=== PATIENT | female | born 1970 | race Caucasian/White ===

== ENCOUNTER 2019-11-16 16:35 | Emergency (ER) | payer OTHER, SELFPAY ==
[2018-10-28 10:58] VITALS: BMI 52.6
[2019-11-16 16:35] VITALS: BP 150/93; PULSE 94; RESP 18; TEMP 35.8
[2019-11-16 16:36] VITALS: BP 150/93; PULSE 94; RESP 18; TEMP 35.8; BMI 57.9
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
--- NOTE | 2019-11-16 17:30 | RAD_ITS ---
STUDY: X-RAY - RIGHT KNEE REASON FOR EXAM: Female, 49 years old. Lateral knee pain, atraumatic TECHNIQUE: 3 view(s) of the knee. COMPARISON: None. FINDINGS: No acute fracture, dislocation or osseous destruction. There is marked tricompartmental degenerative disease. No significant soft tissue swelling. Possibly calcified right lateral thigh nodule. IMPRESSION: Tricompartmental degenerative disease without acute fracture or dislocation. Possibly calcified right lateral thigh nodule. Recommend evaluation with physical exam. Electronically Signed: Ponce Kidd, at 17:50 EDT Tel , Service support , RAD/Knee 4 or More Views
--- NOTE | 2019-11-16 17:49 | ED.DEP ---
ED Disposition - Plan for ED Patient: Disposition: Home or Assisted Living Instructions: KNEE PAIN, Uncertain Cause Referrals: Carlton Weldon MD [Primary Care Provider] - 1 Week if not improving Additional Instructions: Right knee. Motrin for pain and inflammation and Tylenol just for pain. Follow-up with your doctor if not improving if not improving then may need to see an orthopedic physician. Your x-ray shows chronic changes like arthritis but no acute abnormality.
[2019-11-16 18:03] VITALS: RESP 16
== END 2019-11-16 18:05 | disposition home or self-care (01) ==
LOC: ED 17:51
PROVIDERS: Emergency Provider Emergency Medicine; PCP Family Medicine
DX: M25.561 Pain in right knee (principal)
CPT/HCPCS: 73564; 99282

== ENCOUNTER → 2020-02-15 13:47 | Outpatient (CLI) | payer OTHER, SELFPAY ==
[2020-02-08 09:58] VITALS: BMI 57.6
--- NOTE | 2020-02-15 13:47 | ECHOCS_ITS ---
Version 2 Reason For Study: CHF Procedure This was a 2D Doppler, Color Flow transthoracic echocardiogram. Technically difficult study due to patient body habitus. Contrast injection performed. Exam performed in department. Left Ventricle Normal LV size. The estimated ejection fraction is 40 %. No regional wall motion abnormalities noted. Right Ventricle Normal RV size. Normal systolic function. Atria Normal left atrium. Normal right atrium. Mitral Valve Normal mitral valve. Tricuspid Valve The tricuspid valve is not well visualized. Unable to estimate RV systolic pressure due to insufficient tricuspid regurgitant envelope. Aortic Valve The aortic valve is not well visualized. Pulmonic Valve The pulmonic valve is not well visualized. Great Vessels Normal aortic root. The pulmonary artery is normal size. Normal inferior vena cava. Pericardium/Pleural No pericardial effusion. Medication 22 gauge I.V. with prn adaptor inserted into right arm. Diluted definity 2ml given slow IV push to enhance endocardial definition. MMode/2D Measurements & Calculations LVIDd: 6.0 cm IVSd: 1.0 cm Ao root diam: 2.9 cm LVIDs: 4.5 cm LVPWd: 0.98 cm LA dimension: 4.0 cm FS: 24.7 % LAV(MOD-bp): 50.8 ml LVAd ap4: 42.7 cm2 SV(MOD-sp4): 71.1 ml LAV(MOD-bp) Indexed: 19.8 ml/m2 EDV(MOD-sp4): 154.8 ml LAV(MOD-sp2): 48.9 ml EDV(sp4-el): 162.0 ml LAV(MOD-sp4): 51.6 ml LVAs ap4: 29.4 cm2 ESV(MOD-sp4): 83.6 ml ESV(sp4-el): 86.4 ml EF(MOD-sp4): 46.0 % EF(sp4-el): 46.7 % SV(sp4-el): 75.6 ml LA A4 area: 18.6 cm2 RA A4 area: 14.3 cm2 Time Measurements MV dec time: 0.19 sec Doppler Measurements & Calculations MV E max oseas: 61.0 cm/sec Lat Peak E' Oseas: 5.4 cm/sec Med Peak E' Oseas: 12.6 cm/sec MV A max oseas: 101.9 cm/sec E/E' lat: 11.4 E/E' med: 4.8 MV E/A: 0.60 MV V2 max: 134.8 cm/sec MV P1/2t max oseas: 105.9 cm/sec Ao V2 max: 147.3 cm/sec MV max P.3 mmHg MV P1/2t: 58.0 msec Ao max P.7 mmHg MV V2 mean: 76.3 cm/sec MV mean P.8 mmHg MV dec slope: 535.2 cm/sec2 MV V2 VTI: 29.1 cm MVA(P1/2t): 3.8 cm2 LV V1 max: 99.0 cm/sec PA V2 max: 115.6 cm/sec LV V1 max P.9 mmHg Interpretation Summary Normal LV size. The estimated ejection fraction is 40 %. No regional wall motion abnormalities noted. Compared to previous study, the left ventricular systolic function has improved.. Ordering Physician: Albino Reid Referring Physician: Carlton Weldon Performed By: Roni Peoples RCS
== END ==
PROVIDERS: PCP Family Medicine; Referring Provider Internal Medicine Cardiovascular Disease; Visit Provider Internal Medicine Cardiovascular Disease
DX: I42.8 Other cardiomyopathies (principal)
CPT/HCPCS: 93306; Q9957; A4216; C8929

== ENCOUNTER → 2020-09-21 14:51 | Outpatient (CLI) | payer OTHER, SELFPAY ==
[2020-09-06 12:32] VITALS: BMI 57.6
--- NOTE | 2020-09-21 14:54 | ECHOCS_ITS ---
Version 3 Reason For Study: DYSPNEA/SOB Procedure This was a 2D Doppler, Color Flow transthoracic echocardiogram. The study was technically difficult. The study was technically limited. Due to body habitus. Contrast injection was performed. Exam performed in department. Left Ventricle Normal left ventricle. Mild concentric left ventricular hypertrophy. Left ventricular systolic function is normal. The estimated ejection fraction is 55 %. No regional wall motion abnormalities noted. Right Ventricle Normal RV size. Normal systolic function. Great Vessels Normal aortic root. The pulmonary artery is normal size. Inferior vena cava collapse with respiration. Pericardium/Pleural No pericardial effusion. Medication 22 gauge I.V. with prn adaptor inserted into left arm. Diluted definity 3.5ml given slow IV push to enhance endocardial definition. MMode/2D Measurements & Calculations LVIDd: 5.2 cm IVSd: 1.2 cm Ao root diam: 3.0 cm LVIDs: 4.0 cm LVPWd: 1.2 cm FS: 24.1 % LAV(MOD-bp): 59.9 ml LA dimension(2D): 4.0 cm LA A4 area: 19.0 cm2 LAV(MOD-bp) Indexed: 23.4 ml/m2 LAV(MOD-sp2): 64.9 ml LAV(MOD-sp4): 54.6 ml RA A4 area: 13.1 cm2 Doppler Measurements & Calculations MV E max oseas: 63.7 cm/sec Lat Peak E' Oseas: 9.2 cm/sec Med Peak E' Oseas: 6.5 cm/sec MV A max oseas: 105.9 cm/sec E/E' lat: 6.9 E/E' med: 9.7 MV E/A: 0.60 Ao V2 max: 153.1 cm/sec LV V1 max: 97.3 cm/sec PA V2 max: 116.1 cm/sec Ao max P.4 mmHg LV V1 max P.8 mmHg Interpretation Summary Normal left ventricle. Left ventricular systolic function is normal. The estimated ejection fraction is 55 %. Mild concentric left ventricular hypertrophy. Contrast injection was performed. Compared to previous study, the left ventricular systolic function has improved.. Ordering Physician: Franklin^Albino^^^ Referring Physician: Carlton Weldon Performed By: Mayra Murillo, RUBY, RVT
== END ==
PROVIDERS: PCP Family Medicine; Referring Provider Internal Medicine Cardiovascular Disease; Visit Provider Internal Medicine Cardiovascular Disease
DX: R06.00 Dyspnea, unspecified (principal); R06.02 Shortness of breath; I42.8 Other cardiomyopathies; I10 Essential (primary) hypertension
CPT/HCPCS: 93306; Q9957; A4216; C8929

== ENCOUNTER → 2022-01-17 | Outpatient (CLI) | payer OTHER, SELFPAY ==
--- NOTE | 2022-01-17 16:27 | MRI_ITS ---
STUDY: MRI BRAIN WITH AND WITHOUT CONTRAST (ATTENTION INTERNAL AUDITORY CANALS-IAC''S) OF 1728 HOURS ON 01/17/2022 REASON FOR EXAM: 51-year-old female with tinnitus. TECHNIQUE: Standardized multiplanar fat and water weighted pulse sequences were obtained. IV 30mL DOTAREM was administered for the contrast portion of the examination. Routine sequences were obtained. COMPARISON: None. FINDINGS: Normal bilateral temporal bones. Normal bilateral internal auditory canals. Normal 8 nerves bilaterally. There is no demonstrated intracanalicular or cisternal vestibular schwannoma (acoustic neuroma). There is no enhancement of the bilateral VIIth or VIIIth cranial nerves. Normal bilateral cochlea, vestibules and semicircular canals. Normal external auditory canals and middle ears. No evidence of a cholesteatoma. No posterior fossa mass lesions. There is no evidence of ischemic or hemorrhagic cerebral infarct. There is no evidence of intracranial mass lesions. There is no evidence of carotid artery aneurysms. Normal size of the ventricles and extra-axial spaces for the patient''s age. Normal white matter tracts of the supratentorial brain. Normal bilateral basal ganglia. Normal thalami. Normal flow voids within the major intracranial circulation suggesting patency by spin echo criteria. Normal venous enhancement. There is no enhancing intra-axial or extra-axial abnormality. There is no extra-axial fluid accumulation. Normal sella turcica, pituitary gland, infundibular stalk, optic chiasm and hypothalamus. Normal tectal plate and pineal gland. Normal midbrain, robert and medulla. Normal cerebellum. Normal basal cisterns. No demonstrated orbital abnormality, within the constraints of a routine brain study. Normal visualized paranasal sinuses. Normal calvarium and skull base. Normal visualized soft tissue structures. Normal visualized upper cervical spine. MRI/Brain W/WO Contrast IMPRESSION: 1. Normal-appearing internal auditory canals bilaterally and normal-appearing 8th nerves. No evidence of an acoustic neuroma. 2. No evidence of a cerebral pontine angle neoplasm. No posterior fossa lesions. 3. Normal appearing external auditory canals and middle ears is without evidence for cholesteatoma. 4. Normal-appearing semicircular canals and cochlea bilaterally. 5. Normal ventricular system without a midline shift. 6. No ischemic or hemorrhagic cerebral infarct. 7. No intracranial neoplasms. 8. No evidence of carotid artery aneurysms. Electronically Signed: Cleveland Iglesias MD at 23:43 EDT ,
[2022-01-17 17:21] LABS: CREATININE FINGERSTICK < 0.9 mg/dL (0.55-1.02); EGFR FINGERSTICK > 60.0000 mL/min (>60)
== END | disposition home or self-care (01) ==
LOC: MRI 16:21
PROVIDERS: PCP Family Medicine; Visit Provider Otolaryngology Otolaryngology/Facial Plastic Surgery
DX: H93.19 Tinnitus, unspecified ear (principal)
CPT/HCPCS: 70553; A9575

== ENCOUNTER 2022-04-12 13:43 | Emergency (ER) | payer OTHER, SELFPAY ==
[2022-04-12 13:43] VITALS: BP 155/90
[2022-04-12 13:44] VITALS: BP 169/102; PULSE 81; RESP 16; TEMP 35.7; O2SAT 100; BMI 52.4
--- NOTE | 2022-04-12 14:38 | EX.ED.DYSGE1 ---
HPI <LANCE Cabezas - Last Filed: 04/12/22 16:03> History of Present Illness Chief Complaint: Hypertension Narrative Narrative: Patient presents with asymptomatic high blood pressure. She has had 2 weeks of ringing in her left ear and went to see ENT a few days ago. She was told she needs a hearing aid. They asked if her blood pressure has been high so last night she decided to check it and the systolic was in 150s to 160s. She states she is usually around 120s. She has been compliant with her losartan 25 mg once daily and carvedilol 25 mg twice daily with no recent changes. She otherwise feels well. No severe headache visual changes nausea vomiting chest pain shortness of breath abdominal pain or flank pain. Today when it continued to be high this morning with systolic from 160s to 190s she came in for evaluation because a family member told her she could have a stroke. [facility] <LANCE Cabezas - Last Filed: 04/12/22 16:03> [facility] Medical History (Updated 04/12/22 @ 14:41 by LANCE Cabezas) Adrenal mass Asthma Cor pulmonale DM (diabetes mellitus), type 2 Essential (primary) hypertension Hay fever Herpes labialis Hyperlipidemia Hypothyroidism Left bundle branch block (LBBB) Microcytosis Morbid obesity Non-ischemic cardiomyopathy ALEA (obstructive sleep apnea) SOB (shortness of breath) Super obesity Home Medications glyburide 5 mg tablet PO 30 days #30 tabs 10/28/18 [History Last Taken Unknown] albuterol sulfate 90 mcg/actuation breath activated powder inhaler inhalation 02/06/20 [History Last Taken Unknown] fluoxetine 40 mg capsule 40 mg PO DAILY 02/06/20 [History Last Taken Unknown] levothyroxine 50 mcg tablet 50 mcg PO DAILY 02/06/20 [History Last Taken Unknown] metformin 1,000 mg tablet 1,000 mg PO BID 02/06/20 [History Last Taken Unknown] hydroxyzine HCl 50 mg tablet 50 mg PO BID PRN 02/08/20 [History Last Taken Unknown] dulaglutide 1.5 mg/0.5 mL subcutaneous pen injector mg subcut QWEEK 09/06/20 [History Last Taken Unknown] lorazepam 0.5 mg tablet 0.5 mg PO BID PRN 09/06/20 [History Last Taken Unknown] bisacodyl 5 mg tablet 5 mg PO ONCE 02/13/21 [History Last Taken Unknown] colestipol 1 gram tablet (Colestid) 1 g PO ONCE 02/13/21 [History Last Taken Unknown] dapagliflozin 10 mg tablet (Farxiga) 10 mg PO DAILY 02/13/21 [History Last Taken Unknown] meclizine 25 mg chewable tablet 25 mg PO DAILY 02/13/21 [History Last Taken Unknown] multivitamin 1 tab PO DAILY 02/13/21 [History Last Taken Unknown] losartan 50 mg tablet 50 mg PO DAILY #90 tabs 09/16/21 [Rx Last Taken Unknown] furosemide 20 mg tablet 40 mg PO DAILY #180 tabs 09/18/21 [Rx Last Taken Unknown] carvedilol 25 mg tablet 25 mg PO BID 30 days #180 tabs 10/25/21 [Rx Last Taken Unknown] Allergy/AdvReac Type Severity Reaction Status Date / Time hydrocodone [From Vicodin] AdvReac Vomiting Verified 04/12/22 13:44 Family History Father COPD (chronic obstructive pulmonary disease) Mother Diabetes Heart disease Surgical History History of knee surgery History of left heart catheterization (02/17/17) History of tonsillectomy Social History (Updated 09/06/20 @ 16:[address] Albino Reid MD) Smoking Status: Never smoker alcohol intake: current alcohol intake frequency: a few times a month Alcohol type: hard liquor ROS <LANCE Cabezas - Last Filed: 04/12/22 16:03> ROS ED ROS Narrative Constitutional: Negative for fever, chills, malaise. Eyes: Negative for visual change. ENT: Negative for sore throat, ear pain, rhinorrhea. CVS: Negative for palpitations, chest pain, syncope. Respiratory: Negative for shortness of breath, cough, orthopnea. GI: Negative for abdominal pain, nausea, vomiting, diarrhea, constipation, melena, hematochezia. : Negative for dysuria, hematuria or frequency. Neuro: Negative for headache, motor/sensory dysfunction. Skin: Negative for rash, abscess, or wound. Musc: Negative for joint pain, swelling, trauma. Heme: Negative for easy bruising, bleeding, lymphadenopathy. EXAM <LANCE Cabezas - Last Filed: 04/12/22 16:03> Physical Exam Narrative Exam Narrative: CONST: Patient sitting in no acute distress. EYES: Normal inspection. NECK: Normal inspection. RESP: No respiratory distress, CTAB. CVS: Regular rate and rhythm, no murmur, no gallop. SKIN: Color normal, no rash, warm, dry, intact. EXTREMITIES: Normal appearance, no pedal edema. NEURO: Oriented x4. PSYCH: Normal affect. Const Vital Signs: 04/12/22 13:44 04/12/22 13:43 04/12/22 14:13 Temperature 96.2 F L Temperature Source Temporal Pulse Rate 81 Respiratory Rate 16 Respiratory Pattern Normal Blood Pressure 169/102 H 155/90 H Blood Pressure Mean 124 111 Pulse Ox 100 Oxygen Delivery Method Room Air 04/12/22 16:05 Temperature 98.4 F Temperature Source Pulse Rate 74 Respiratory Rate 14 Respiratory Pattern Blood Pressure 146/76 H Blood Pressure Mean Pulse Ox 99 Oxygen Delivery Method <Dr. Fritz Joseph DO - Last Filed: 04/12/22 16:09> Physical Exam Const Vital Signs: 04/12/22 13:44 04/12/22 13:43 04/12/22 14:13 Temperature 96.2 F L Temperature Source Temporal Pulse Rate 81 Respiratory Rate 16 Respiratory Pattern Normal Blood Pressure 169/102 H 155/90 H Blood Pressure Mean 124 111 Pulse Ox 100 Oxygen Delivery Method Room Air 04/12/22 16:05 Temperature 98.4 F Temperature Source Pulse Rate 74 Respiratory Rate 14 Respiratory Pattern Blood Pressure 146/76 H Blood Pressure Mean Pulse Ox 99 Oxygen Delivery Method MDM <LANCE Cabezas - Last Filed: 04/12/22 16:03> [facility] Narrative Medical decision making narrative: Patient presents with asymptomatic high blood pressure. She is on losartan and carvedilol. She appears well and nontoxic. Initial BP 169/102 and other vital signs within normal limits. After resting in the exam room it is 155/90. Her medical exam is unremarkable. She is neurologically intact. She has no concerning symptoms and no indication for emergent work-up. I spoke with the personnel adviser Dr. Rodrigues for her PCP who recommended increasing Losartan from 25 mg to 50 once daily. Patient will keep a BP log and follow up next week and was discharged in stable condition. 1. Chronic hypertension <Dr. Fritz Joseph, DO - Last Filed: 04/12/22 16:09> [facility] MDM Narrative Medical decision making narrative: This patient was seen with a PA/ROUNDHOUSE SUPERVISOR Individually assessed they patient including history and physical. I have reviewed everything on the chart that is available and agree with the documentation provided by the PA/ROUNDHOUSE SUPERVISOR including discussion about the assessment, treatment plan, discussion, and return precautions. Patient presenting with hypertension which she has had in the past. She is currently on losartan 25 mg p.o. daily as well as carvedilol. She not had any medication changes. She states she has been concerned that her blood pressure is high and she spoke with a family reason nurse who told her to come to the emergency room. She has had some ringing in her ear recently and was seen by ENT and was told she needs a hearing aid. She did state that they did ask about her blood pressure and she has been checking it frequently today. Its been elevated. Her initial blood pressure was 169/102 however after sitting her blood pressure came down to 155/90 and then finally to 146/76. I do not believe she needs any blood work or imaging. Patient's primary care did agree to have the patient increase her losartan to 50 mg p.o. daily. Patient counseled on this. She will keep a log of her blood pressures. Patient presents with asymptomatic high blood pressure. She is on losartan and carvedilol. She appears well and nontoxic. Initial BP 169/102 and other vital signs within normal limits. After resting in the exam room it is 155/90. Her medical exam is unremarkable. She is neurologically intact. She has no concerning symptoms and no indication for emergent work-up. I spoke with the personnel adviser Dr. Rodrigues for her PCP who recommended increasing Losartan from 25 mg to 50 once daily. Patient will keep a BP log and follow up next week and was discharged in stable condition. 1. Chronic hypertension 2. Tinnitus Discharge Plan Triage Chief Complaint: Hypertension ED Midlevel Provider: Fransisca Manley ED Provider: Fritz Joseph Dx/Rx/DC Orders Clinical Impression: Chronic hypertension Instructions: Controlling High Blood Pressure Prescriptions: No Action glyburide 5 mg tablet PO 30 Days Qty: 30 albuterol sulfate 90 mcg/actuation aerosol powdr breath activated INHALATION metformin 1,000 mg tablet 1,000 mg PO BID levothyroxine 50 mcg tablet 50 mcg PO DAILY Label Comments: TAKE 1 TABLET BY MOUTH ONCE DAILY BEFORE BREAKFAST fluoxetine 40 mg capsule 40 mg PO DAILY hydroxyzine HCl 50 mg tablet 50 mg PO BID PRN lorazepam 0.5 mg tablet 0.5 mg PO BID PRN dulaglutide 1.5 mg/0.5 mL pen injector SC QWEEK colestipol [Colestid] 1 gram tablet 1 g PO ONCE Farxiga 10 mg tablet 10 mg PO DAILY meclizine 25 mg tablet,chewable 25 mg PO DAILY bisacodyl 5 mg tablet 5 mg PO ONCE multivitamin Tablet 1 tab PO DAILY losartan 50 mg tablet 50 mg PO DAILY Qty: 90 3RF furosemide 20 mg tablet 40 mg PO DAILY Qty: 180 3RF carvedilol 25 mg tablet 25 mg PO BID 30 Days Qty: 180 3RF Primary Care Provider: Carlton Weldon Referrals: Carlton Weldon MD [Primary Care Provider] - Activity Restrictions/Additional Instructions: Increase your Losartan dose to 50 mg once a day (1 tablet) and continue the carvedilol as normal. Take your blood pressure once a day around the same time and keep a log and follow-up with your primary care doctor next week. Disposition Disposition: Home, Self Care Discharge Date/Time: 04/12/22 16:06
[2022-04-12 16:05] VITALS: BP 146/76; PULSE 74; RESP 14; TEMP 36.9; O2SAT 99
== END 2022-04-12 16:06 | disposition home or self-care (01) ==
PROVIDERS: Emergency Provider Student in an Organized Health Care Education/Training Program; PCP Family Medicine; Visit Provider Student in an Organized Health Care Education/Training Program
DX: I10 Essential (primary) hypertension (principal); H93.19 Tinnitus, unspecified ear; G47.33 Obstructive sleep apnea (adult) (pediatric)
CPT/HCPCS: 99282

== ENCOUNTER 2022-07-22 14:21 | Emergency (ER) | payer OTHER, SELFPAY ==
[2022-07-22 14:22] VITALS: BP 128/96; PULSE 98; RESP 16; TEMP 36.2; O2SAT 99
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
--- NOTE | 2022-07-22 16:00 | EX.ED.GENINJ ---
HPI History of Present Illness Chief Complaint: Head Injury Detail of Chief Complaint: Tripped and fell yesterday in her kitchen and fell landing on her face. Informant: patient Onset/Context/Timing Onset: Yesterday Mechanism/Context: Fall Current Severity: Moderate Maximum Severity: Moderate Associated Symptoms Associated Symptoms: Negative for Parasthesias, Weakness, Loss of function, Inability to ambulate, Loss of consciousness or Amnesia Narrative Narrative: 51-year-old female history diabetes, hypertension and left bundle branch block. States she felt fine yesterday she was walking to her kitchen and tripped fell and landed right on her right forehead and face. Complaining of bruising and discomfort. No LOC. Nausea without vomiting. She is on no blood thinners. Complains of being sore but can move all her extremities. Denies any recent illness. Prior similar symptoms: Yes Recent Illness/Hospitalization: No [facility] Medical History (Updated 07/22/22 @ 17:[address] Brody Muñiz MD) Adrenal mass Asthma Cor pulmonale DM (diabetes mellitus), type 2 Essential (primary) hypertension Hay fever Herpes labialis Hyperlipidemia Hypothyroidism Left bundle branch block (LBBB) Microcytosis Morbid obesity Non-ischemic cardiomyopathy ALEA (obstructive sleep apnea) SOB (shortness of breath) Super obesity Home Medications glyburide 5 mg tablet PO 30 days #30 tabs 10/28/18 [History Last Taken Unknown] albuterol sulfate 90 mcg/actuation breath activated powder inhaler inhalation 02/06/20 [History Last Taken Unknown] fluoxetine 40 mg capsule 40 mg PO DAILY 02/06/20 [History Last Taken Unknown] levothyroxine 50 mcg tablet 50 mcg PO DAILY 02/06/20 [History Last Taken Unknown] metformin 1,000 mg tablet 1,000 mg PO BID 02/06/20 [History Last Taken Unknown] hydroxyzine HCl 50 mg tablet 50 mg PO BID PRN 02/08/20 [History Last Taken Unknown] dulaglutide 1.5 mg/0.5 mL subcutaneous pen injector mg subcut QWEEK 09/06/20 [History Last Taken Unknown] lorazepam 0.5 mg tablet 0.5 mg PO BID PRN 09/06/20 [History Last Taken Unknown] bisacodyl 5 mg tablet 5 mg PO ONCE 02/13/21 [History Last Taken Unknown] colestipol 1 gram tablet (Colestid) 1 g PO ONCE 02/13/21 [History Last Taken Unknown] dapagliflozin 10 mg tablet (Farxiga) 10 mg PO DAILY 02/13/21 [History Last Taken Unknown] meclizine 25 mg chewable tablet 25 mg PO DAILY 02/13/21 [History Last Taken Unknown] multivitamin 1 tab PO DAILY 02/13/21 [History Last Taken Unknown] losartan 50 mg tablet 50 mg PO DAILY #90 tabs 09/16/21 [Rx Last Taken Unknown] furosemide 20 mg tablet 40 mg PO DAILY #180 tabs 09/18/21 [Rx Last Taken Unknown] carvedilol 25 mg tablet 25 mg PO BID 30 days #180 tabs 10/25/21 [Rx Last Taken Unknown] Allergy/AdvReac Type Severity Reaction Status Date / Time hydrocodone [From Vicodin] AdvReac Vomiting Verified 07/22/22 14:22 Family History Father COPD (chronic obstructive pulmonary disease) Mother Diabetes Heart disease Surgical History History of knee surgery History of left heart catheterization (02/17/17) History of tonsillectomy Surgical History no surgical history no surgical history Social History Smoking Status: Never smoker alcohol intake: current alcohol intake frequency: a few times a month Alcohol type: hard liquor ROS ROS ED ROS Narrative Nausea. Head injury. Headache. Review of Systems ROS Unobtainable: Denies due to encephalopathy Constitutional Constitutional ED: Denies chills or fever(s) Eyes Eyes: Denies blurry vision ENT ENT ED: Denies ear pain Cardiovascular Cardiovascular: Denies chest pain Respiratory/Chest Respiratory/Chest: Denies cough or dyspnea Gastrointestinal Gastrointestinal: Reports nausea; Denies abdominal pain, constipation, diarrhea, melena or vomiting Genitourinary Genitourinary ED: Denies dysuria or hematuria Musculoskeletal Musculoskeletal: Denies arthralgias or back pain Integumentary Denies abscess Neurologic Neurologic: Reports headache(s) Psychiatric Psychiatric: Denies anxiety or depression Endocrine Endocrinology: Denies cold intolerance Hematologic/Lymphatic Hematologic/Lymphatic: Denies easy bleeding or easy bruising Allergic/Immunologic Allergic/Immunologic ED: Denies mouth swelling or tongue swelling EXAM Physical Exam Narrative Exam Narrative: Well-appearing 51 female. Vital signs stable afebrile. H EENT exam give dry reactive eyes mostly intact. She has a moderate contusion bruising and swelling to her right forehead and right cheek. Extra motions are intact. Dentitions intact. Skin: Scalp otherwise are nontender. C-spine nontender. Trachea midline. Back nontender. Normal range of motion her neck. Lungs are clear. Chest wall nontender. Ribs are nontender. Abdomen soft nontender. Normal bowel sounds no peritoneal signs. Pelvic girdle intact. Patient moving all 4 extremities. Nontender no deformity. Normal rotary soil stabilizer strength bilaterally. Normal dorsi plantar flexion. Neurologically she is awake alert. Answering questions and following commands. No focal motor deficits. Const Vital Signs: 07/22/22 14:22 07/22/22 15:46 Temperature 97.1 F L Temperature Source Temporal Pulse Rate 98 Respiratory Rate 16 Respiratory Effort Normal Non-Labored Respiratory Depth Normal Respiratory Pattern Normal Blood Pressure 128/96 H Blood Pressure Mean 106 Pulse Ox 99 Oxygen Delivery Method Room Air Positive well nourished, well developed and obese; Negative for cachectic, contractures or unkempt General Appearance ED: well developed and NAD; Negative for unkempt, cachectic or contractures Nutritional Appearance: obese; Negative for cachectic HEENT HEENT Narrative: Right facial tenderness, bruising and swelling. trauma and tenderness; Negative for atraumatic Eyes PERRL and EOMs intact bilaterally General Eye ED: Negative for other Neck full ROM General: Negative for tenderness Chest Wall inspection of chest normal and palpation of chest normal Breast/Axilla Inspection: Negative for other Resp normal respiratory effort and clear to auscultation bilaterally Effort and Inspection: Negative for pain with movement Auscultation: Negative for rales, rhonchi or wheezes Cardio regular rhythm, S1 normal heart sound, S2 normal heart sound and no murmurs Palpation: Negative for palpable S3 or palpable S4 Rate: regular rate Rhythm: Negative for abnormal rhythm GI normal to inspection, nondistended, normoactive bowel sounds, non-tender, non-distended and no masses Inspection: Negative for abdominal distention Auscultation: normoactive bowel sounds Palpation: soft; Negative for tender Back/Spine normal to inspection and no thoracic nor lumbar tenderness General Back: Negative for CVA tenderness Thoracic Spine / Upper Back: Negative for thoracic spinal tenderness Lumbar Spine / Lower Back: Negative for straight leg raise negative bilaterally Extremity normal to inspection General Extremety ED: Negative for deformity or edema General Extremity: Negative for deformity or edema Neuro oriented x3, CN's II-XII intact bilaterally, moves all extremities and no focal motor deficits Gael Coma Scale: document GCS findings Spontaneous Obeys Commands Oriented 15 Sensorium / Orientation: alert, oriented to person, oriented to place and oriented to time; Negative for orientation impaired, lethargic or stuporous Motor Exam: strength 5/5 throughout Psych mental status grossly normal and thought process normal Appearance: Negative for unkempt Attitude: No agitated Mood & Affect: Negative for depressed, anxious or tearful Skin no rashes or lesions noted and No no wounds Skin Narrative: Right facial contusions and bruising. General Skin Exam: Negative for other Rashes: No rashes noted Trauma: Negative for abrasion Wounds: wounds noted MDM MDM MDM Narrative Medical decision making narrative: 51-year-old female with a fall yesterday after tripping. CT of her brain and facial bones to be obtained. Blood sugar be checked due to her diabetes. She denies any prefall symptoms. Repeat exam patient doing well at 5:20 PM will be discharged home. Ice to her face. Tylenol Motrin for pain. Lab Data Attestation: I reviewed the patient's lab results. Lab results narrative: BG T = 107. Labs: Laboratory Results - last 24 hr 07/22/22 16:06 POC Glucose 107 H Radiography Diagnostic Testing: Clinical Impression(s) from Imaging Studies Brain CT 07/22/22 15:58 IMPRESSION: No acute findings in the head/brain. Electronically Signed: Abdelrahman Murrieta MD at 16:47 EST , Facial/Sinus 07/22/22 15:58 IMPRESSION: No acute findings in the face. Electronically Signed: Abdelrahman Murrieta MD at 16:47 EST , CAT scan of the brain and face showed soft tissue swelling but no fracture. Interpreted by the radiologist and reviewed by me. Discharge Plan Triage Chief Complaint: Head Injury ED Provider: Brody Muñiz Dx/Rx/DC Orders Clinical Impression: Fall, Closed head injury, Contusion of face, History of diabetes mellitus Instructions: ED Concussion, ED Facial Contusion Prescriptions: No Action glyburide 5 mg tablet PO 30 Days Qty: 30 albuterol sulfate 90 mcg/actuation aerosol powdr breath activated INHALATION metformin 1,000 mg tablet 1,000 mg PO BID levothyroxine 50 mcg tablet 50 mcg PO DAILY Label Comments: TAKE 1 TABLET BY MOUTH ONCE DAILY BEFORE BREAKFAST fluoxetine 40 mg capsule 40 mg PO DAILY hydroxyzine HCl 50 mg tablet 50 mg PO BID PRN lorazepam 0.5 mg tablet 0.5 mg PO BID PRN dulaglutide 1.5 mg/0.5 mL pen injector SC QWEEK colestipol [Colestid] 1 gram tablet 1 g PO ONCE Farxiga 10 mg tablet 10 mg PO DAILY meclizine 25 mg tablet,chewable 25 mg PO DAILY bisacodyl 5 mg tablet 5 mg PO ONCE multivitamin Tablet 1 tab PO DAILY losartan 50 mg tablet 50 mg PO DAILY Qty: 90 3RF furosemide 20 mg tablet 40 mg PO DAILY Qty: 180 3RF carvedilol 25 mg tablet 25 mg PO BID 30 Days Qty: 180 3RF Primary Care Provider: Carlton Weldon Referrals: Carlton Weldon MD [Primary Care Provider] - As Needed Activity Restrictions/Additional Instructions: History of face to decrease pain, swelling and bruising. Motrin for pain and swelling and Tylenol for pain. The CAT scan of your head and face were unremarkable other than soft tissue swelling. No fractures. Follow-up with your doctor if not improving. Disposition Disposition: Home, Self Care
[2022-07-22 16:25] LABS: Bedside Glucose 107 mg/dL (74-106)
[2022-07-22 17:29] VITALS: BP 145/76; PULSE 98; RESP 14; O2SAT 97
== END 2022-07-22 17:30 | disposition home or self-care (01) ==
PROVIDERS: Emergency Provider Emergency Medicine; PCP Family Medicine; Visit Provider Emergency Medicine
DX: S00.83XA Contusion of other part of head, initial encounter (principal); G47.33 Obstructive sleep apnea (adult) (pediatric); E66.9 Obesity, unspecified; W19.XXXA Unspecified fall, initial encounter
CPT/HCPCS: 70450; 70486; 82962; 99282

== ENCOUNTER → 2022-07-23 | Outpatient (CLI) | payer OTHER, SELFPAY ==
[2022-07-23 10:54] LABS: BNP,B-Type NATRIURETIC PEPTIDE 52.9 pg/mL (0-100)
== END | disposition home or self-care (01) ==
LOC: LAB 09:11
PROVIDERS: PCP Family Medicine; Referring Provider Physician Assistant Medical; Visit Provider Physician Assistant Medical
DX: R06.00 Dyspnea, unspecified (principal)
CPT/HCPCS: 36415; 83880

== ENCOUNTER → 2024-09-01 | Outpatient (CLI) | payer OTHER, SELFPAY ==
[2024-09-01 16:33] LABS: Absolute Lymphocyte Count 4.96 X10^3/uL (0.83-4.51); Absolute Neutrophil Count 7.5 X10^3/uL (2.0-7.7); Basophil# 0.11 X10^3/uL; Basophil% 0.8 % (0-1); Eosinophil# 0.45 X10^3/uL; Eosinophils% 3.2 % (0-5); Hematocrit 41.7 % (37-47); Hemoglobin 13.2 g/dL (12.0-15.0); Lymphocyte # 4.96 X10^3/ul (0.83-4.51); Lymphocyte % 35.5 % (19-41); Mean Corp Hgb Conc 31.7 g/dL (32-36); Mean Corpuscular Hgb 26.9 pg (27.0-32.0); Mean Corpuscular Volume 85.1 fL (81-99); Mean Platelet Vol. 9.3 fl (6.2-12.0); Monocyte# 0.81 X10^3/uL; Monocyte% 5.8 % (0-10); NRBC Flagged by Analyzer 0 % (0-5); Neutrophil % 53.6 % (47-70); POSITIVE MORPHOLOGY YES; Platelet Count 519 K/mm3 (150-450)
--- NOTE | 2024-09-01 16:35 | RAD_ITS ---
INDICATION: pre-operative: [facility] EXAMINATION/TECHNIQUE: X-RAY - XR Chest 2 Views COMPARISON: Prior study dated: 02/14/2017 FINDINGS: LINES/DEVICES: None. LUNGS: No consolidation, edema or effusion. No pneumothorax. MEDIASTINUM AND CARDIOVASCULAR STRUCTURES: Cardiac silhouette not enlarged. Central airways and mediastinal contour are unremarkable. BONES AND SOFT TISSUES: Degenerative changes of the spine. RAD/Chest PA and Lateral IMPRESSION: No radiographic evidence of acute cardiopulmonary disease. Electronically Signed: Ramiro Cisneros MD at 15:01 EST ,
[2024-09-01 16:39] LABS: Differential Indicated SCAN CRITERIA MET
[2024-09-01 17:02] LABS: Anion Gap 6 (5-15); BUN 6 mg/dL (7-18); BUN/Creat Ratio 8.8 RATIO (10-20); Calcium,Total 9.2 mg/dL (8.5-10.1); Chloride 103 mmol/L (98-107); Creatinine, Serum 0.68 mg/dL (0.55-1.02); EST Glomerular Filtration Rate 96 mL/min (>60); Est Glom Filt Rate - Afr Amer 116 mL/min (>60); Glucose 131 mg/dL (74-106); Potassium 4.2 mmol/L (3.5-5.1); Sodium Level 138 mmol/L (136-145)
[2024-09-01 17:05] LABS: Anisocytosis RARE; Atypical Lymphocyte 1+ %; Platelet Estimate MOD INC (ADEQ); Red Cell Morphology N CHROM NORMAL (NORM C&C)
== END | disposition home or self-care (01) ==
LOC: RAD 16:18
PROVIDERS: PCP Family Medicine; Referring Provider Nurse Practitioner Family; Visit Provider Nurse Practitioner Family
DX: I42.8 Other cardiomyopathies (principal); E11.69 Type 2 diabetes mellitus with other specified complication; R94.39 Abnormal result of other cardiovascular function study; I10 Essential (primary) hypertension; I44.7 Left bundle-branch block, unspecified; E78.5 Hyperlipidemia, unspecified
CPT/HCPCS: 36415; 71046; 80048; 85025

== ENCOUNTER 2024-09-09 08:18 | Day surgery (SDC) | payer OTHER, SELFPAY ==
[2024-09-08 08:02] VITALS: BMI 47.1
--- NOTE | 2024-09-09 13:28 | CL.D_ITS ---
Patient Name: XI BLACKMAN Study Date: 09/09/2024 Performing: Albino Reid MD Ht: 66 inches 167.64 cm : 1970 Wt: 292.4 lbs 132.45 kg Age: 53 Gender: female BSA: 2.35 PROCEDURE(S) PERFORMED DC01-(01025)LHC/COR/LV CLINICAL PROFILE AND INDICATIONS Indications: Suspected CAD Heart Failure: None Stress/Imaging Date: 07/11/24 CAD Presentations: Symptom unlikely to be ischemic. CONCLUSIONS Non obstructive coronary arteries RECOMMENDATIONS Medical therapy DESCRIPTION OF PROCEDURE The patient arrived to the procedure lab. The risks and benefits of the procedure as well as a full description of our services here and current unavailability of surgical backup were fully explained to the patient and/or their significant other prior to the catheterization. The Timeout was completed, verifying the correct patient and procedure. The patient's procedural site was prepped and draped in the usual fashion. Local anesthetic was given subcutaneously to right radial region with Lidocaine 2%. Using a modified Seldinger technique, arterial access was obtained via the right radial artery, a 6Fr sheath was inserted. Left Coronary Artery selective angiography was performed in multiple views using a 5 Fr. 4.0 [place] catheter. Right Coronary Artery selective angiography was then performed in multiple views using a 5 Fr. 4.0 [place] catheter. Left Ventriculography was performed in STEWART projection using a 5 Fr. Pigtail catheter.The arterial sheath was pulled and a TR Band was applied for hemostasis 10 ml of air CORONARY ANGIOGRAPHY DOMINANCE: Co- Dominant LEFT HEART ASSESSMENT Left Ventricular Ejection Fraction: by LV Gram 35 % Abnormal LV wall motion Depressed Left Ventricular systolic function LEFT MAIN: Angiographically normal, No significant disease noted LEFT ANTERIOR DESCENDING ARTERY: Mild luminal irregularities CIRCUMFLEX ARTERY: Mild luminal irregularities RIGHT CORONARY ARTERY: No significant disease noted COMPLICATIONS No Complications PROCEDURE MEDICATIONS Fentanyl 50 mcg IV Versed 1 mg IV Versed 1 mg IV Oxygen: 2 L/min via nasal cannula Heparin given IA 09/09/2024 10:23:10 Verapamil 2.5mg, Ntg 100mcgs, 3000 units of Heparin given IA 09/09/2024 10:23:10 SUMMARY OF HEMODYNAMIC DATA Time AIR REST ECG 08:48:09 AO 118/88 (99) SA 10:25:37 LV 132/10, 15 10:31:05 LV 134/13, 16 10:31:11 ECG 10:49:15 Signed By Albino Reid MD On 09/09/2024 13:27:27 Albino Reid MD
== END 2024-09-09 12:30 | disposition home or self-care (01) ==
PROVIDERS: PCP Family Medicine; Referring Provider Internal Medicine Cardiovascular Disease; Visit Provider Internal Medicine Cardiovascular Disease
DX: I42.8 Other cardiomyopathies (principal); E66.01 Morbid (severe) obesity due to excess calories; E11.69 Type 2 diabetes mellitus with other specified complication; R94.39 Abnormal result of other cardiovascular function study; I44.7 Left bundle-branch block, unspecified; I10 Essential (primary) hypertension; E78.5 Hyperlipidemia, unspecified; E03.9 Hypothyroidism, unspecified; G47.33 Obstructive sleep apnea (adult) (pediatric); J45.909 Unspecified asthma, uncomplicated; Z79.84 Long term (current) use of oral hypoglycemic drugs; Z79.890 Hormone replacement therapy; Z79.899 Other long term (current) drug therapy
CPT/HCPCS: 93458; 99152; 99153; Q9967; C1769; C1894

== ENCOUNTER 2025-01-25 07:52 | Outpatient (RCR) | payer OTHER, SELFPAY ==
[2025-01-25 08:20] VITALS: BP 128/77; PULSE 85; RESP 18; BMI 47.7
--- NOTE | 2025-01-25 09:58 | PCM.WC.HP ---
History of Present Illness Date of Service: 01/25/25 Chief Complaint: Full-thickness wound left great toe History of Wound: Stable full-thickness wound left great toe Progress of Wound: Patient is a 54-year-old diabetic female presenting to the wound care center today for evaluation of full-thickness wound to left great toe. Patient states the wound has been present for approximately 1 month. She admits to dry skin and the skin opened up causing the wound. She admits to home treatment with a Band-Aid. She is concerned for an amputation. Her blood sugars well-controlled. She denies any trauma to the area. Denies constitutional symptoms. No other pedal complaints at this time. [facility] History Abnormal stress test Non-ischemic cardiomyopathy Left bundle branch block (LBBB) Morbid obesity Hyperlipidemia Herpes labialis Hypothyroidism Essential (primary) hypertension Hay fever SOB (shortness of breath) Adrenal mass Microcytosis Cor pulmonale ALEA (obstructive sleep apnea) Super obesity DM (diabetes mellitus), type 2 Asthma Home Medications ?Medication ?Instructions ?Recorded ?Last Taken ?Type levothyroxine 50 mcg tablet 50 mcg PO DAILY 02/06/20 09/09/24 History lorazepam 0.5 mg tablet 0.5 mg PO BID PRN anxiety 09/06/20 Unknown History multivitamin 1 tab PO DAILY 02/13/21 Unknown History losartan 50 mg tablet 50 mg PO DAILY #90 tabs 09/16/21 09/09/24 Rx carvedilol 25 mg tablet 25 mg PO BID 30 days #180 tabs 10/25/21 09/09/24 Rx bupropion HCl 300 mg 24 hr tablet, 300 mg PO QAM 07/23/22 09/09/24 History extended release furosemide 20 mg tablet 20 mg PO DAILY 07/23/22 Unknown History albuterol sulfate 90 mcg/actuation 2 inh inhalation Q6H PRN shortness 08/11/24 Unknown History breath activated powder inhaler of breath or wheezing bisacodyl 5 mg tablet 5 mg PO ONCE PRN constipation 08/11/24 Unknown History duloxetine 60 mg capsule,delayed 60 mg PO BID 08/11/24 09/09/24 History release glyburide 5 mg tablet 5 mg PO BID 30 days #60 tabs 08/11/24 09/09/24 History latanoprost 0.005 % eye drops drp ophthalmic (eye) 08/11/24 Unknown History metformin 500 mg tablet,extended 1,000 mg PO BID 08/11/24 09/08/24 History release 24 hr ondansetron 4 mg disintegrating 4 mg PO ONCE PRN nausea and 08/11/24 Unknown History tablet vomiting tirzepatide 12.5 mg/0.5 mL mg subcut 08/11/24 Unknown History subcutaneous pen injector (Mounjaro) aspirin 81 mg capsule 81 mg PO DAILY 09/08/24 09/09/24 History losartan 100 mg tablet 100 mg PO DAILY 01/25/25 Unknown History tirzepatide 15 mg/0.5 mL mg subcut 01/25/25 Unknown History subcutaneous pen injector (Mounjaro) Allergy/AdvReac Type Severity Reaction Status Date / Time glimepiride AdvReac Nausea/Vom/ Verified 01/25/25 08:16 Diarrhea hydrocodone (From Vicodin) AdvReac Vomiting Verified 01/25/25 08:16 pioglitazone AdvReac Other Verified 01/25/25 08:16 Family History Father COPD (chronic obstructive pulmonary disease) Mother Diabetes Heart disease Surgical History History of left heart catheterization (02/17/17) History of knee surgery History of tonsillectomy Social History Smoking Status: Former smoker alcohol intake: current alcohol intake frequency: holidays/special occasions only Alcohol type: hard liquor substance use type: does not use caffeine: Yes Type: carbonated beverages Vital Signs Vital Signs Vital Signs: 01/25/25 08:20 Temperature Source Temporal Pulse Rate 85 Respiratory Rate 18 Blood Pressure 128/77 H Blood Pressure Mean 94 Blood Pressure Source Monitor Blood Pressure Position Semi-Fowlers Blood Pressure Location Right Arm Oxygen Delivery Method Room Air Weight Weight: 134.263 kg Body Mass Index (BMI) 47.7 Physical Exam Narrative Vascular: DP and PT pulse are palpable to left lower extremity. CFT is brisk. Skin temperature gradient is warm to warm from proximal ankles to distal digits. Skin temperature turgor is within normal limits. Neurological: Light touch is intact. Protective sensation is diminished to the digits. Reestablish at the midfoot and ankle. Dermatological:. Evidence of xerosis cutis appreciated to plantar feet to left lower extremity. Evidence of full-thickness wound to the medial aspect of the left hallux measuring 1.4 x 0.5 x 0.1 cm. Wound base is granular with no sign of infection. Excisional debridement down to and including subcutaneous tissue of the full-thickness wound to the left hallux done with a double-action nail nipper without incident. Predebridement measurement was callus. Postdebridement measurement is 1.4 x 0.5 x 0.1 cm. Musculoskeletal: Muscle strength 5 of 5 in all quadrants bilateral. Pain on palpation of the full-thickness wound left hallux. No pain with calf pressure. Debridement Note Debridement Note Debridement Free Text: Excisional debridement down to and including subcutaneous tissue of the full-thickness wound to the left hallux done with a double-action nail nipper without incident. Predebridement measurement was callus. Postdebridement measurement is 1.4 x 0.5 x 0.1 cm. Post-Debridement Measurements and Additional Note: Post-Debridement Measurements/Treatment FATOU - Nurse 1 - General Ulcer Assessment Start: 01/25/25 08:14 Freq: Status: Active Protocol: JOSE DE JESUS Activity Type Activity Date Activity User E-sign Co-sign Detail Recorded Client Recorded Date Recorded By Document 01/25/25 08:20 KW [id number] 01/25/25 08:27 KW Edit Result 01/25/25 08:20 KW (1) [id number] 01/25/25 08:33 KW (1) Left - Posterior Tibial Doppler => Multiphasic - Dorsalis Pedis Doppler => Multiphasic - Extremity Color => Normal - Hair Growth on Legs => Yes - Hair Growth on Toes => Yes - Thick => No - Discolored => No - Deformed => No - Improper Length & Hygeine => No Preferred language => [place] Sales Product Specialist Required => No Able to Read => Yes Able to Write => Yes Communication Tools => None Caregiver Communication Skills => No Impairment Impairment Right Hearing Abillity => Normal Left Hearing Abillity => Normal Visual Assistive Devices => Glasses Preferences => Verbal,Written, => Demonstration Barriers to Learning => None Readiness To Learn => Excellent Willingness to Engage in Self Management => High Activies Readiness to Engage in Self Management => High Activities Anxiety Level => Calm Cooperation => Cooperative Perception => Coherent Interest in Health Problem => Asks Questions Education Importance => Acknowledges Need Does Patient Smoke tobacco or other => Yes substances Smoking Status => Former smoker Is Patient Diabetic => Yes Recent Decline in Ability to Perform => Denies Any => Declines Cultural/Voodoo Needs that may affect => No Treatment Plan Would you allow our hospital associate professor of biblical studies to => No meet you for the purpose of spiritual/ emotional support? Director Summer Sessions to contact place of [facility] => No 01/25/25 08:20 WC - Today's Visit Information Type of service Initial Visit Arrival Mode Ambulatory Patient Identification Verified (Name & Yes ) Height and Weight Height 5 ft 6 in Weight 134.263 kg Weight in Pounds 296.0 lbs Weight Measurement Method Estimated by Patient Body Mass Index (BMI) 47.7 BMI Classification Obese Vital Signs Temperature Source Temporal Pulse Rate (60-100) 85 Pulse Location Monitor Respiratory Rate (12-18) 18 Respiratory rate source Observation Oxygen Delivery Method Room Air Blood Pressure (90/60-120/80) 128/77 H Blood Pressure Mean 94 Source Monitor Position Semi-Fowlers Blood Pressure Location Right Arm History Since Last Visit- (Skip if this is Patient's initial visit) Left Footwear Regular Shoe Right Footwear Regular Shoe Pain Scale: 0-10 Numeric Is Patient Pain Free? Yes Lower Extremity Assessment/ Foot Assessment/ Toe Nail Assessment Left -Posterior Tibial Doppler Multiphasic -Dorsalis Pedis Doppler Multiphasic -Extremity Color Normal -Hair Growth on Legs Yes -Hair Growth on Toes Yes -Thick No -Discolored No -Deformed No -Improper Length & Hygeine No Communication Assessment Preferred language [place] Sales Product Specialist Required No Able to Read Yes Able to Write Yes Communication Tools None Caregiver Communication Skills No Impairment Impairment Right Hearing Abillity Normal Left Hearing Abillity Normal Visual Assistive Devices Glasses Teaching Assessment Preferences Verbal,Written, Demonstration Barriers to Learning None Readiness To Learn Excellent Willingness to Engage in Self Management High Activies Readiness to Engage in Self Management High Activities Anxiety Level Calm Cooperation Cooperative Perception Coherent Interest in Health Problem Asks Questions Education Importance Acknowledges Need Does Patient Smoke tobacco or other Yes substances Smoking Status Former smoker Is Patient Diabetic Yes Functional Assessment Recent Decline in Ability to Perform Denies Any Declines Culture/Voodoo/Director Summer Sessions Cultural/Voodoo Needs that may affect No Treatment Plan Would you allow our hospital associate professor of biblical studies to No meet you for the purpose of spiritual/ emotional support? Director Summer Sessions to contact place of [employer] No WC - Nurse 1 - General Ulcer Measurement Start: 01/25/25 08:14 Freq: Status: Active Protocol: Activity Type Activity Date Activity User E-sign Co-sign Detail Recorded Client Recorded Date Recorded By Document 01/25/25 08:20 KW [id number] 01/25/25 08:27 KW 01/25/25 08:20 Wound Center Nurse 1 #1 LT HALLUX -Current Size (cm) - Length 1 -Current Size (cm) - Width 0.1 -Current Size (cm) - Depth 0.3 -Total Square Cm 0.1 -Date of Last Picture (Recall this 01/25/25 field) -Exudate Amt Small -Exudate Type Serosanguineous -Wound Margin Distinct, Outline Attached -Granulation Amt Large (67-100%) -Granulation Quality [place] -Texture (Sabiha-wound Skin Appearance) Assessed,Callus -Moisture (Sabiha-wound Skin Appearance) Assessed -Color (Sabiha-wound Skin Appearance) Assessed, Erythema -Temperature (Sabiha-wound Skin No Abnormality Appearance) (Pt Warm) -Tenderness on Palpation (Sabiha-wound No Skin Appearance) -Ulcer Cleansing Soap and Water -Foul Odor after Cleansing No -Anesthetic Used 5% Lidocaine Gel Right Calf (cm) 48.5 Right Ankle (cm) 27.3 Left Calf (cm) 47 Left Ankle (cm) 27 WC - Nurse 2 - General Ulcer CM Notes Start: 01/25/25 08:14 Freq: Status: Active Protocol: Activity Type Activity Date Activity User E-sign Co-sign Detail Recorded Client Recorded Date Recorded By Document 01/25/25 09:08 JF [id number] 01/25/25 09:11 CARINA 01/25/25 09:08 Wound Center Nurse 2 #1 LT HALLUX -Time 09:09 -Correct Patient Yes -Correct Side, Site, Position Yes -Correct Procedure Yes -Procedure Performed Yes -Type of Procedure Debridement -Clinical Debridement Subcutaneous -Tissue Removed Subcutaneous -Post Debridement (cm) - Length 1.4 -Post Debridement (cm) - Width 0.5 -Post Debridement (cm) - Depth 0.1 -Total Square (Post) (cm) 0.70 -Area of Debridement (cm) - Length 1.4 -Area of Debridement (cm) - Width 0.5 -Total Square (Area) (cm) 0.70 -Tunneling No -Undermining/Tunneling No -Circular Undermining No -Wound/Ulcer Outcome Not Healed -Ulcer Cleansing Rinsed/ Irrigated with Saline -Foul Odor after Cleansing No -Bioengineered Tissue No -Bleeding Controlled with Pressure -Treatment Response Procedure Tolerated Well -Offloading No -Debridement - Subq, 1st 20sq cm Yes Pain Scale: 0-10 Numeric Is Patient Pain Free? Yes - Nurse 3 - General Ulcer D/C NN Start: 01/25/25 08:14 Freq: Status: Active Protocol: Activity Type Activity Date Activity User E-sign Co-sign Detail Recorded Client Recorded Date Recorded By Document 01/25/25 09:19 OR [id number] 01/25/25 09:20 OR 01/25/25 09:19 Wound Care Center Nurse 3 #1 LT HALLUX -Ulcer Cleansing Soap and Water -Foul Odor after Cleansing No -Negative Pressure Wound Therapy N/A -Other Dressing BETADINE, BANDAID Pain Scale: 0-10 Numeric Is Patient Pain Free? Yes - Visit Discharge Discharge Condition Stable Ambulatory Status Ambulatory Transportation Private Auto Medication Reconcilliation completed & No provided to patient/care provider Clinical Summary of Care Provided Yes Notes: KEEP CLEAN AND DRY, SEE DR IN OFFICE. Assessment/Plan Assessment/Plan (1) Non-pressure chronic ulcer of other part of left foot with fat layer exposed: CODE(S): L97.522 - Non-pressure chronic ulcer of other part of left foot with fat layer exposed PLAN: Patient was examined and evaluated. All findings were discussed with the patient. All questions were answered to the patient's satisfaction. Excisional debridement down to and including subcutaneous tissue of the full-thickness wound to the left hallux done with a double-action nail nipper without incident. Predebridement measurement was callus. Postdebridement measurement is 1.4 x 0.5 x 0.1 cm. There is white clean and patted dry. The full-thickness wound was dressed with Betadine paint and Band-Aid. Patient will perform daily dressing changes. Educated the patient that she will go on to heal uneventfully and there is no risk for infection or amputation at this time. Educated the patient to continue strict blood sugar control. Patient will be discharged from the wound care center follow-up in private office for continued in office wound care as well as authorization for diabetic shoes and follow-up. She left the office pleased with her visit. . (2) Acute painful diabetic polyneuropathy: CODE(S): E11.42 - Type 2 diabetes mellitus with diabetic polyneuropathy
--- NOTE | 2025-01-26 11:00 | WC ---
PHOTO 01/25/25 LEFT HALLUX
== END 2025-01-25 15:41 | disposition home or self-care (01) ==
LOC: WC 07:52
PROVIDERS: PCP Family Medicine; Referring Provider Physician Assistant; Visit Provider Podiatrist Foot & Ankle Surgery
DX: E11.621 Type 2 diabetes mellitus with foot ulcer (principal); L97.522 Non-pressure chronic ulcer of other part of left foot with fat layer exposed; I42.8 Other cardiomyopathies; E11.42 Type 2 diabetes mellitus with diabetic polyneuropathy; I10 Essential (primary) hypertension; E78.5 Hyperlipidemia, unspecified; Z87.891 Personal history of nicotine dependence; G47.33 Obstructive sleep apnea (adult) (pediatric); E03.9 Hypothyroidism, unspecified; Z79.899 Other long term (current) drug therapy; Z79.890 Hormone replacement therapy; J45.909 Unspecified asthma, uncomplicated; Z79.84 Long term (current) use of oral hypoglycemic drugs; Z79.82 Long term (current) use of aspirin
CPT/HCPCS: 11042; 99213; G0463